=== PATIENT | female | born 1955 | race Caucasian/White ===

== ENCOUNTER 2017-01-30 15:01 | Emergency (ER) | payer MEDICARE ==
[2017-01-30] MEDS ORDERED: Lorazepam 2 MG/ML VIAL ONE (15:08)
[2017-01-30] MEDS ORDERED: diphenhydrAMINE 50 MG/ML VIAL ONE (15:23)
== END 2017-01-30 16:01 | disposition home or self-care (01) ==
LOC: NAV ERS 15:01 → EDBD 15:01 → NAV ERS 16:01
DX: F41.9 Anxiety disorder, unspecified (principal); F32.9 Major depressive disorder, single episode, unspecified; J44.9 Chronic obstructive pulmonary disease, unspecified; M19.90 Unspecified osteoarthritis, unspecified site; Z87.891 Personal history of nicotine dependence
CPT/HCPCS: 96372; J1200; J2060